=== PATIENT | female | born 1975 | race Caucasian/White ===

== ENCOUNTER 2022-04-05 21:18 | Observation (INO) ==
[2022-04-05] MEDS ORDERED: Naloxone 0.4 MG/ML INJ IVP PRN (22:14)
[2022-04-05] MEDS ORDERED: Ondansetron ODT 4 MG TAB.RAPDIS SL PRN (22:14)
[2022-04-05] MEDS ORDERED: Melatonin 3 MG TABLET PO PRN (22:14)
[2022-04-05] MEDS ORDERED: *HR* Labetalol 20 MG/4 ML SYRINGE IVP PRN (22:15)
[2022-04-06] MEDS ORDERED: Nitroglycerin 0.4 MG TAB.SUBL SL PRN (01:23)
[2022-04-06] MEDS ORDERED: Morphine Sulfate 2 MG/ML SYRINGE IVP PRN (01:23)
[2022-04-06] MEDS ORDERED: Potassium Chloride Elixir 20 MEQ/15 ML UDC PO ONE (02:29)
[2022-04-06 03:54] VITALS: O2SAT 97
[2022-04-06 04:14] LABS: Hematocrit 37.2 % (35.3-44.9); Hemoglobin 12.3 g/dL (11.5-15.4); Mean Corpuscular HGB Conc 33.1 g/dL (31.6-35.5); Mean Corpuscular Hemoglobin 30.3 pg (28.0-33.3); Mean Corpuscular Volume 91.6 fL (83.0-100.0); Mean Platelet Volume 9.4 fL (9.4-12.4); Platelet Count 277 K/mcL (140-400); Red Blood Count 4.06 M/mcL (3.82-4.97); Red Cell Distribution Width 13.1 % (11.5-14.5); White Blood Count 8.2 K/mcL (4.3-11.1)
[2022-04-06 04:46] LABS: Estimated Average Glucose 97 mg/dl
[2022-04-06] MEDS ORDERED: Aspirin Enteric Coated 81 MG Tablet PO SCH (09:00)
[2022-04-06 11:07] VITALS: BP 135/90; PULSE 74; TEMP 98.4
[2022-04-06] MEDS ORDERED: *HR* Heparin 5,000 UNIT/ML VIAL SQ SCH (22:00)
[2022-04-07] MEDS ORDERED: FLUoxetine 20 MG CAPSULE PO SCH (09:00)
[2022-04-07] MEDS ORDERED: Patient Taking Own Medication 1 EACH PO SCH (09:00)
[2022-04-07] MEDS ORDERED: hydroCHLOROthiazide 25 MG TABLET PO SCH (09:00)
== END 2022-04-06 17:27 | disposition home or self-care (01) ==
LOC: SUATTDRO 21:39 → 2NNU 21:39 → INTOOBSV 21:39 → 2NENU 22:00
PROVIDERS: ADMIT Internal Medicine Cardiovascular Disease; ATTEND Internal Medicine